=== PATIENT | male | born 1965 | race Native Hawaiian/Other Pacific Islander ===

== ENCOUNTER → 2016-09-26 | Outpatient (CLI) | payer OTHER ==
[~2016-09-26] MED LIST: ASPI325T; EZET10; GLUCTAB; PRAV20TA67; Work Release
[2016-09-26 08:02] LABS: MICRO ALBUMIN RANDOM URINE RAW 8.1 MG/L (0.0-30.0)
[2016-09-26 08:16] LABS: ANION GAP 6 MEQ/L (5-15); AST (GOT) 22 U/L (15-37); BICARBONATE 28.2 MEQ/L (21.0-32.0); BLOOD UREA NITROGEN 19 MG/DL (7-18); CHLORIDE 105 MEQ/L (98-107); GLOMERULAR FILTRATION RATE 85 ML/MIN (>89); GLUCOSE,FASTING 162 MG/DL (74-99); POTASSIUM 4.3 MEQ/L (3.5-5.1); SODIUM (NA) 139 MEQ/L (136-145)
[2016-09-26 08:25] LABS: ALKALINE PHOSPHATASE 111 U/L (45-117); ALT (GPT) 41 U/L (12-78); FREE T4 0.96 NG/DL (0.76-1.46); HDL CHOLESTEROL 41.3 MG/DL (40.0-60.0); LDL CHOLESTEROL 127 MG/DL (0-99); TOTAL BILIRUBIN ADULT 0.5 MG/DL (0.2-1.0)
[2016-09-26 11:41] LABS: HEMOGLOBIN A1a 1.1 %; HEMOGLOBIN Ao 81.7 %; HEMOGLOBIN F 1.3 %; HEMOGLOBIN LA1C 2.3 %; HEMOGLOBIN P3 4.2 %
== END ==
LOC: CLAB 07:09
PROVIDERS: ATTEND Internal Medicine Endocrinology, Diabetes & Metabolism
DX: I10 Essential (primary) hypertension (principal); E78.5 Hyperlipidemia, unspecified; R10.9 Unspecified abdominal pain; E11.9 Type 2 diabetes mellitus without complications
CPT/HCPCS: 36415; 80053; 80061; 82043; 82306; 83036; 84439; 84443

== ENCOUNTER → 2016-10-06 | Outpatient (CLI) | payer OTHER | LOC: CLAB 15:04 | PROVIDERS: ATTEND Internal Medicine Endocrinology, Diabetes & Metabolism | DX: E11.9 Type 2 diabetes mellitus without complications (principal); I10 Essential (primary) hypertension; E78.5 Hyperlipidemia, unspecified; E85.9 Amyloidosis, unspecified | CPT/HCPCS: 36415; 86708; 86709; 86803 ==

== ENCOUNTER → 2017-02-02 | Outpatient (CLI) | payer OTHER ==
[2017-02-02 09:57] LABS: HEMATOCRIT 44.4 % (39.0-51.0); MEAN CELL VOLUME 85.5 FL (80.0-100.0); MEAN CORPUSCULAR HEMOGLOBIN 28.1 PG (27.0-34.0); MEAN CORPUSCULAR HGB CONC 32.9 % (32.0-36.0); PLATELET COUNT 216 TH/MM3 (150-450); RED BLOOD COUNT 5.19 MIL/MM3 (4.50-5.90); RED CELL DISTRIBUTION WIDTH 14.9 % (11.6-17.2); REVIEW FLAG FINAL; WHITE BLOOD COUNT 3.8 TH/MM3 (4.0-11.0)
== END ==
LOC: CLAB 09:25
PROVIDERS: ATTEND Internal Medicine Endocrinology, Diabetes & Metabolism
DX: E78.5 Hyperlipidemia, unspecified (principal); I10 Essential (primary) hypertension; E11.9 Type 2 diabetes mellitus without complications; E85.9 Amyloidosis, unspecified
CPT/HCPCS: 36415; 82306; 84153; 84403; 85027

== ENCOUNTER → 2017-03-23 | Outpatient (CLI) | payer OTHER ==
[2017-03-23 10:26] LABS: ANION GAP 6 MEQ/L (5-15); AST (GOT) 19 U/L (15-37); BICARBONATE 27.4 MEQ/L (21.0-32.0); BLOOD UREA NITROGEN 20 MG/DL (7-18); CHLORIDE 105 MEQ/L (98-107); GLOMERULAR FILTRATION RATE 84 ML/MIN (>89); GLUCOSE,FASTING 140 MG/DL (74-99); SODIUM (NA) 138 MEQ/L (136-145)
[2017-03-23 10:36] LABS: ALKALINE PHOSPHATASE 102 U/L (45-117); ALT (GPT) 32 U/L (12-78); FREE T4 1.01 NG/DL (0.76-1.46); LDL CHOLESTEROL 98 MG/DL (0-99); TOTAL BILIRUBIN ADULT 0.4 MG/DL (0.2-1.0)
[2017-03-23 10:41] LABS: AUTOMATED NEUTROPHIL # 1.8 TH/MM3 (1.8-7.7); BASOPHIL % 0.3 % (0.0-2.0); EOSINOPHIL % 1.1 % (0.0-4.0); HEMO FLAGS DIFF FINAL; LYMPH % 46.2 % (9.0-44.0); MEAN CELL VOLUME 85.8 FL (80.0-100.0); MEAN CORPUSCULAR HEMOGLOBIN 28.9 PG (27.0-34.0); MEAN CORPUSCULAR HGB CONC 33.7 % (32.0-36.0); MONO % 9.1 % (0.0-8.0); NEUT % 43.3 % (16.0-70.0); PLATELET COUNT 203 TH/MM3 (150-450); RED BLOOD COUNT 5.01 MIL/MM3 (4.50-5.90); RED CELL DISTRIBUTION WIDTH 14.8 % (11.6-17.2); WHITE BLOOD COUNT 4.2 TH/MM3 (4.0-11.0)
[2017-03-23 17:30] LABS: HEMOGLOBIN A1a 1.2 %; HEMOGLOBIN Ao 81.7 %; HEMOGLOBIN F 1.4 %; HEMOGLOBIN LA1C 2.1 %
== END ==
LOC: CLAB 09:44
PROVIDERS: ATTEND Internal Medicine Endocrinology, Diabetes & Metabolism
DX: I10 Essential (primary) hypertension (principal); E11.9 Type 2 diabetes mellitus without complications; E78.5 Hyperlipidemia, unspecified; E03.9 Hypothyroidism, unspecified; E55.9 Vitamin D deficiency, unspecified; E23.0 Hypopituitarism; Z13.9 Encounter for screening, unspecified
CPT/HCPCS: 36415; 80053; 80061; 82306; 83036; 84153; 84403; 84439; 84443; 85025

== ENCOUNTER → 2017-09-11 | Outpatient (CLI) | payer OTHER ==
[2017-09-11 10:08] LABS: ALBUMIN 4.2 GM/DL (3.4-5.0); AST (GOT) 26 U/L (15-37); BICARBONATE 29.9 MEQ/L (21.0-32.0); BLOOD UREA NITROGEN 19 MG/DL (7-18); CHLORIDE 102 MEQ/L (98-107); CHOLESTEROL 127 MG/DL (120-200); GLOMERULAR FILTRATION RATE 88 ML/MIN (>89); GLUCOSE,FASTING 115 MG/DL (74-99); SODIUM (NA) 137 MEQ/L (136-145)
[2017-09-11 10:10] LABS: CALCIUM 9.4 MG/DL (8.5-10.1)
[2017-09-11 10:15] LABS: ALKALINE PHOSPHATASE 91 U/L (45-117); ALT (GPT) 39 U/L (12-78); CHOLESTEROL/ HDL RATIO 2.83 RATIO; HDL CHOLESTEROL 44.8 MG/DL (40.0-60.0); LDL CHOLESTEROL 71 MG/DL (0-99); TOTAL BILIRUBIN ADULT 0.5 MG/DL (0.2-1.0); TOTAL PROTEIN 7.7 GM/DL (6.4-8.2); TRIGLYCERIDES 54 MG/DL (42-150)
[2017-09-11 16:50] LABS: HEMOGLOBIN A1C 7.3 % (4.3-6.0)
== END ==
LOC: CLAB 09:16
PROVIDERS: ATTEND Internal Medicine Endocrinology, Diabetes & Metabolism
DX: E11.9 Type 2 diabetes mellitus without complications (principal); I10 Essential (primary) hypertension; E78.5 Hyperlipidemia, unspecified
CPT/HCPCS: 36415; 80053; 80061; 83036; 84681; 86341

== ENCOUNTER → 2017-09-21 | Outpatient (CLI) | payer OTHER ==
[2017-09-21 12:53] LABS: ALBUMIN 4.3 GM/DL (3.4-5.0); AST (GOT) 37 U/L (15-37); BICARBONATE 28.3 MEQ/L (21.0-32.0); BLOOD UREA NITROGEN 17 MG/DL (7-18); CHLORIDE 103 MEQ/L (98-107); CREATININE 0.86 MG/DL (0.60-1.30); GLOMERULAR FILTRATION RATE 93 ML/MIN (>89); GLUCOSE,FASTING 71 MG/DL (74-99); SODIUM (NA) 138 MEQ/L (136-145)
[2017-09-21 12:57] LABS: ALKALINE PHOSPHATASE 95 U/L (45-117); ALT (GPT) 37 U/L (12-78); CHOLESTEROL 106 MG/DL (120-200); HDL CHOLESTEROL 48.1 MG/DL (40.0-60.0); LDL CHOLESTEROL 53 MG/DL (0-99); TOTAL BILIRUBIN ADULT 0.6 MG/DL (0.2-1.0); TOTAL PROTEIN 7.5 GM/DL (6.4-8.2); TRIGLYCERIDES 23 MG/DL (42-150)
== END ==
LOC: CLAB 11:59
PROVIDERS: ATTEND Family Medicine
DX: E78.5 Hyperlipidemia, unspecified (principal)
CPT/HCPCS: 36415; 80053; 80061

== ENCOUNTER → 2018-01-03 | Outpatient (CLI) | payer OTHER ==
[2018-01-03 12:24] LABS: HEMATOCRIT 42.8 % (39.0-51.0); HEMOGLOBIN 14.4 GM/DL (13.0-17.0); MEAN CORPUSCULAR HEMOGLOBIN 29.2 PG (27.0-34.0); MEAN CORPUSCULAR HGB CONC 33.6 % (32.0-36.0); PLATELET COUNT 210 TH/MM3 (150-450); RED BLOOD COUNT 4.92 MIL/MM3 (4.50-5.90); RED CELL DISTRIBUTION WIDTH 14.8 % (11.6-17.2); WHITE BLOOD COUNT 4.6 TH/MM3 (4.0-11.0)
[2018-01-03 12:27] LABS: AST (GOT) 22 U/L (15-37); BICARBONATE 26.6 MEQ/L (21.0-32.0); BLOOD UREA NITROGEN 23 MG/DL (7-18); CALCIUM 8.9 MG/DL (8.5-10.1); CHLORIDE 104 MEQ/L (98-107); CREATININE 0.94 MG/DL (0.60-1.30); GLOMERULAR FILTRATION RATE 84 ML/MIN (>89); GLUCOSE,FASTING 132 MG/DL (74-99); SODIUM (NA) 138 MEQ/L (136-145)
[2018-01-03 12:28] LABS: CHOLESTEROL 125 MG/DL (120-200)
[2018-01-03 12:53] LABS: ALKALINE PHOSPHATASE 69 U/L (45-117); ALT (GPT) 29 U/L (12-78); CHOLESTEROL/ HDL RATIO 3.18 RATIO; FREE T4 0.97 NG/DL (0.76-1.46); HDL CHOLESTEROL 39.3 MG/DL (40.0-60.0); LDL CHOLESTEROL 77 MG/DL (0-99); TOTAL BILIRUBIN ADULT 0.6 MG/DL (0.2-1.0); TOTAL PROTEIN 7.2 GM/DL (6.4-8.2); TRIGLYCERIDES 45 MG/DL (42-150)
[2018-01-03 16:37] LABS: HEMOGLOBIN A1C 7.1 % (4.3-6.0)
== END ==
LOC: CLAB 11:34
PROVIDERS: ATTEND Internal Medicine Endocrinology, Diabetes & Metabolism
DX: E11.9 Type 2 diabetes mellitus without complications (principal); I10 Essential (primary) hypertension; E78.5 Hyperlipidemia, unspecified; E55.9 Vitamin D deficiency, unspecified; E23.0 Hypopituitarism; E03.9 Hypothyroidism, unspecified
CPT/HCPCS: 36415; 80053; 80061; 82306; 82607; 83036; 84153; 84403; 84439; 84443; 85027

== ENCOUNTER 2018-01-27 08:57 | Emergency (ER) | payer OTHER ==
[~2018-01-27] VITALS: Ht 188 cm; Wt 94.5 kg
[2018-01-27] VITALS (13 sets, daily range): BP systolic 105–140; BP diastolic 56–86; PULSE 71–90; RESP 16–18; TEMP 97.6–98.7; O2SAT 97–100
[2018-01-27] MEDS ORDERED: DAPA1TAB3 PO (09:12)
[2018-01-27] MEDS ORDERED: LISD40 PO (09:12)
[2018-01-27] MEDS ORDERED: METF500T PO (09:12)
[2018-01-27] MEDS ORDERED: FENO145T2 PO (09:12)
[2018-01-27] MEDS ORDERED: ROSU20 PO (09:12)
[2018-01-27 09:30] LABS: BASOPHIL % 0.3 % (0.0-2.0); EOSINOPHIL % 0.8 % (0.0-4.0); HEMOGLOBIN 14.1 GM/DL (13.0-17.0); LYMPH % 33.5 % (9.0-44.0); LYMPHOCYTE # 1.7 TH/MM3 (1.0-4.8); MEAN CELL VOLUME 86.6 FL (80.0-100.0); MEAN CORPUSCULAR HGB CONC 33.5 % (32.0-36.0); MONO % 7.1 % (0.0-8.0); MONOCYTE # 0.4 TH/MM3 (0-0.9); NEUT % 58.3 % (16.0-70.0); PLATELET COUNT 218 TH/MM3 (150-450); RED BLOOD COUNT 4.84 MIL/MM3 (4.50-5.90); RED CELL DISTRIBUTION WIDTH 14.5 % (11.6-17.2); WHITE BLOOD COUNT 5.2 TH/MM3 (4.0-11.0)
[2018-01-27] MEDS ORDERED: NITROGLYCERIN 2% OINT 1 GM PACKET TOPICAL ONE (09:30)
--- NOTE | 2018-01-27 09:31 | PD ---
HPI Chief Complaint: Chest Pain Time Seen by Provider: 09:26 Travel History International Travel<30 days: No Contact w/Intl Traveler<30days: No Traveled to known affect area: No History of Present Illness HPI 52-year-old female patient with history of diabetes, presents to the ER today because of 2 days history of substernal chest tightness which she states is currently an 8 out of 10. He denies any shortness of breath, nausea, vomiting, fevers, or any other symptoms. He does not know of any exacerbating or relieving factors. He has never had symptoms before. He had taken 4 tablets of baby aspirin before he came in. Modifying Factors: None Associated Signs & Symptoms: Substernal chest pain Risk Factors: None PFSH Past Medical History High Cholesterol: Yes Diabetes: Yes Patient Takes Glucophage: Yes Tetanus Vaccination: > 5 Years Influenza Vaccination: Yes ?: Not Social History Alcohol Use: No Tobacco Use: No Substance Use: No Allergies-Medications (Allergen,Severity, Reaction): Coded Allergies: No Known Allergies (Verified Allergy, Mild, 03/11/07) Reported Meds & Prescriptions Reported Meds & Active Scripts Active Reported Fenofibrate 145 Mg Tab 145 Mg PO DAILY Crestor (Rosuvastatin Calcium) 20 Mg Tab 20 Mg PO DAILY Farxiga (Dapagliflozin) 10 Mg Tab 10 Mg PO DAILY Metformin (Metformin HCl) 500 Mg Tab 500 Mg PO BIDPC Vyvanse (Lisdexamfetamine Dimesylate) 40 Mg Cap 40 Mg PO DAILY Review of Systems Except as stated in HPI: all other systems reviewed are Neg Physical Exam Narrative GENERAL: Well-developed middle-age male currently in mild distress. Awake and oriented 3. SKIN: Focused skin assessment warm/dry. HEAD: Atraumatic. Normocephalic. EYES: Pupils equal and round. No scleral icterus. No injection or drainage. ENT: No nasal bleeding or discharge. Mucous membranes pink and moist. NECK: Trachea midline. No JVD. CARDIOVASCULAR: Regular rate and rhythm. No murmur appreciated. RESPIRATORY: No accessory muscle use. Clear to auscultation. Breath sounds equal bilaterally. GASTROINTESTINAL: Abdomen soft, non-tender, nondistended. Hepatic and splenic margins not palpable. MUSCULOSKELETAL: No obvious deformities. No clubbing. No cyanosis. No edema. NEUROLOGICAL: Awake and alert. No obvious cranial nerve deficits. Motor grossly within normal limits. Normal speech. PSYCHIATRIC: Appropriate mood and affect; insight and judgment normal. Data Data Last Documented VS Vital Signs Date Time Temp Pulse Resp B/P (MAP) Pulse Ox O2 Delivery O2 Flow Rate FiO2 01/27/18 09:18 99 Room Air 01/27/18 09:07 79 18 01/27/18 09:00 97.9 Orders Orders Electrocardiogram (01/27/18 09:13) Complete Blood Count With Diff (01/27/18 09:13) Basic Metabolic Panel (Bmp) (01/27/18 09:13) Ckmb (Isoenzyme) Profile (01/27/18 09:13) Troponin I (01/27/18 09:13) Chest, Single Ap (01/27/18 09:13) Iv Access Insert/Monitor (01/27/18 09:13) Ecg Monitoring (01/27/18 09:13) Oxygen Administration (01/27/18 09:13) Oximetry (01/27/18 09:13) Nitroglycerin 2% Oint (Nitroglycerin 2% (01/27/18 09:30) CKMB (01/27/18 09:15) CKMB% (01/27/18 09:15) Admit Order (Ed Use Only) (01/27/18 10:12) Hepatic Functional Panel (01/27/18 10:12) Labs Laboratory Tests Test 01/27/18 09:15 White Blood Count 5.2 TH/MM3 Red Blood Count 4.84 MIL/MM3 Hemoglobin 14.1 GM/DL Hematocrit 42.0 % Mean Corpuscular Volume 86.6 FL Mean Corpuscular Hemoglobin 29.0 PG Mean Corpuscular Hemoglobin Concent 33.5 % Red Cell Distribution Width 14.5 % Platelet Count 218 TH/MM3 Mean Platelet Volume 8.0 FL Neutrophils (%) (Auto) 58.3 % Lymphocytes (%) (Auto) 33.5 % Monocytes (%) (Auto) 7.1 % Eosinophils (%) (Auto) 0.8 % Basophils (%) (Auto) 0.3 % Neutrophils # (Auto) 3.0 TH/MM3 Lymphocytes # (Auto) 1.7 TH/MM3 Monocytes # (Auto) 0.4 TH/MM3 Eosinophils # (Auto) 0.0 TH/MM3 Basophils # (Auto) 0.0 TH/MM3 CBC Comment DIFF FINAL Differential Comment Blood Urea Nitrogen 26 MG/DL Creatinine 1.12 MG/DL Random Glucose 142 MG/DL Calcium Level 8.8 MG/DL Sodium Level 138 MEQ/L Potassium Level 4.0 MEQ/L Chloride Level 103 MEQ/L Carbon Dioxide Level 24.9 MEQ/L Anion Gap 10 MEQ/L Estimat Glomerular Filtration Rate 69 ML/MIN Total Creatine Kinase 232 U/L Creatine Kinase MB 4.4 NG/ML Troponin I LESS THAN 0.02 NG/ML MDM Medical Decision Making Medical Screen Exam Complete: Yes Emergency Medical Condition: Yes Medical Record Reviewed: Yes Interpretation(s) EKG EKG shows NSR, no ST elevation or depression, and no arrhythmias. No significant T-wave inversions. Laboratory Tests Test 01/27/18 09:15 Blood Urea Nitrogen 26 MG/DL (7-18) Random Glucose 142 MG/DL (74-106) Estimat Glomerular Filtration Rate 69 ML/MIN (>89) Creatine Kinase MB 4.4 NG/ML (0.5-3.6) Troponin I LESS THAN 0.02 NG/ML Last 24 hours Impressions Chest X-Ray 01/27/18 0913 Signed Impressions: CONCLUSION: No acute cardiopulmonary disease Differential Diagnosis ACS versus dysrhythmias versus costochondritis versus anxiety attack Narrative Course Patient was given aspirin nitroglycerin in the ER. Planning to admit for further evaluation and chest pain center. Cardiac enzyme was initially negative. EKG did not show any signs of acute changes. Chest x-ray was unremarkable. Diagnosis Primary Impression: Chest pain Admitting Information Admitting Physician Requests: Admit Samuel Kaur MD Jan 27, 2018 09:31
--- NOTE | 2018-01-27 09:45 | RADRPT ---
EXAM DATE: 01/27/2018 9:27 AM EDT AGE/SEX: 52 years / Male INDICATIONS: Chest pain and tightness. CLINICAL DATA: This is the patient's initial encounter. Patient reports that signs and symptoms have been present for 2 days and indicates a pain score of 0/10. MEDICAL/SURGICAL HISTORY: None. None. COMPARISON: No prior exams available for comparison. FINDINGS: A single AP view of the chest demonstrates the lungs to be symmetrically aerated without evidence of mass, infiltrate or effusion. The cardiomediastinal contours are unremarkable. Osseous structures a re intact. CONCLUSION: No acute cardiopulmonary disease Electronically signed by: Sim Yepez MD 01/27/2018 9:44 AM EDT
[2018-01-27 09:53] LABS: BICARBONATE 24.9 MEQ/L (21.0-32.0); BLOOD UREA NITROGEN 26 MG/DL (7-18); CALCIUM 8.8 MG/DL (8.5-10.1); CHLORIDE 103 MEQ/L (98-107); CREATININE 1.12 MG/DL (0.60-1.30); GLOMERULAR FILTRATION RATE 69 ML/MIN (>89); GLUCOSE,RANDOM 142 MG/DL (74-106); SODIUM (NA) 138 MEQ/L (136-145)
[2018-01-27 09:58] LABS: TROPONIN I LESS THAN 0.02 NG/ML (0.02-0.05)
[2018-01-27] MEDS ORDERED: ACETAMINOPHEN 500 MG CPLT PO PRN (10:30)
[2018-01-27] MEDS ORDERED: NITROGLYCERIN 0.4 MG SL 25 TABS/BTL SL PRN (10:30)
[2018-01-27] MEDS ORDERED: SODIUM CHLORIDE 0.9% FLUSH 10 ML FLUSH IV FLUSH PRN (10:30)
[2018-01-27] MEDS: ASPIRIN 325 MG TAB PO SCH (11:24)
[2018-01-27] MEDS ORDERED: ONDANSETRON ODT 4 MG TAB PO PRN (11:30)
[2018-01-27] MEDS ORDERED: ONDANSETRON HCL 4 MG/2 ML VIAL IV PUSH PRN (11:30)
[2018-01-27] MEDS ORDERED: MORPHINE SULFATE 4 MG/ML INJ IV PUSH ONE (11:30)
[2018-01-27] MEDS ORDERED: MORPHINE SULFATE 4 MG/ML INJ IV ONE (11:45)
--- NOTE | 2018-01-27 11:54 | HHI.HP ---
HPI Primary Care Physician Sam Helton D.O. Chief Complaint Chest pain History of Present Illness 52 y.o. Male presented to the ER today after several hours of mid sternal chest pain. He states last evening he went to dinner with friends and ate a steak, later after dinner took a 30 minute walk. Around 12mn he developed mid sternal heaviness/tightness that prevented him from sleeping most of the night. Rates pain at 8/10 on arrival to ER and now feels radiation thru to his mid scapular area. No arm/jaw symptoms. Feels that his breathing is slightly labored over his usual. Had slight nausea without vomiting with breakfast this am which he did not finish. States always has some degree of diaphoresis when he eats, he has noticed none over his usual. He denies abdominal pain but does mention in the past he has had difficulty with gastroparesis with he believes an ileus/ SBO. At the time of visit in ER pod E for history he feels his chest pain is now 9-10/10 currently. Nitro paste on which he doesn't feel helped. He denies fevers or chills. No diarrhea. He denies any past surgeries. No personal history of CAD. Used to follow with Dr. Pollo Garcia in Cardiology for family history/ prevention but last seen in office ~ 2-3 years ago. Lexiscan 09/15/13 No stress induced ischemia. EF 75% No history of past cardiac catheterization. Review of Systems Consitutional: DENIES: Fatigue, Fever, Chills, Weight gain, Weight loss Eyes: DENIES: Amaurosis Fugax, Change in vision HEENT: DENIES: Lightheadedness, Change in hearing Respiratory: COMPLAINS OF: Shortness of breath Cardiovascular: COMPLAINS OF: Chest pain Gastrointestinal: COMPLAINS OF: Nausea Genitourinary: DENIES: Urinary incontinence, Difficulty voiding Integumentary: DENIES: Rash Neurologic: DENIES: Tingling or numbness, Memory problems, Poor Balance, Stroke symptoms Musculoskeletal: DENIES: Joint pain, Muscle pain, Limited range of motion, Back pain Psychiatric: COMPLAINS OF: Sleep disturbances (takes Ambien PRN insomnia), DENIES: Anxiety, Depression Hematologic: DENIES: Bruising tendencies, Bleeding tendencies Endocrine: DENIES: Weight gain, Weight loss, Thyroid disease Past Family Social History Allergies: Coded Allergies: No Known Allergies (Verified Allergy, Mild, 03/11/07) Past Medical History PMH: Type 2 DM, Hyperlipidemia/Hypertriglyceridemia, ADHD, Insomnia, Gastroparesis Denies HTN (states takes ACEI for renal protection w/ his DM). Denies known CAD. Possible Ileus vs. SBO in the past. Intermittent GERD Past Surgical History Denies surgeries. Reported Medications Ambien 10 mg PO Q HS PRN insomnia Enalapril 10 mg PO Daily Reported Meds & Active Scripts Active Reported Fenofibrate 145 Mg Tab 145 Mg PO DAILY Crestor (Rosuvastatin Calcium) 20 Mg Tab 20 Mg PO DAILY Farxiga (Dapagliflozin) 10 Mg Tab 10 Mg PO DAILY Metformin (Metformin HCl) 500 Mg Tab 500 Mg PO BIDPC Vyvanse (Lisdexamfetamine Dimesylate) 40 Mg Cap 40 Mg PO DAILY Active Ordered Medications Current Medications Medications (Trade) Dose Ordered Sig/Romain Route Start Time Stop Time Status Last Admin (NS Flush) 2 ml UNSCH PRN IV FLUSH 01/27/18 10:30 (NS Flush) 2 ml BID IV FLUSH 01/27/18 21:00 (Tylenol) 500 mg Q4H PRN PO 01/27/18 10:30 (Nitrostat Sl) 0.4 mg Q5M PRN SL 01/27/18 10:30 01/27/18 11:36 (Aspirin) 325 mg DAILY PO 01/28/18 09:00 (Zofran Inj) 4 mg Q6HR PRN IV PUSH 01/27/18 11:30 Sodium Chloride 1,000 ml @ 100 mls/hr Q10H IV 01/27/18 11:30 (Zofran Odt) 4 mg Q6H PRN PO 01/27/18 11:30 (Morphine Inj) 4 mg ONCE ONCE IV 01/27/18 11:45 01/27/18 11:46 Family History Brother NE age 54 Dad, no CAD Mom hx HTN Social History Works as a Pharmacist No Tobacco, No illicit drugs. No ETOH Physical Exam Vital Signs Vital Signs Date Time Temp Pulse Resp B/P (MAP) Pulse Ox O2 Delivery O2 Flow Rate FiO2 01/27/18 11:39 18 01/27/18 11:39 18 01/27/18 11:30 76 18 132/77 (95) 99 Nasal Cannula 2.00 01/27/18 09:18 99 Room Air 01/27/18 09:18 99 Room Air 01/27/18 09:07 79 18 139/86 (103) 99 Room Air 01/27/18 09:07 18 99 Room Air 01/27/18 09:00 97.9 84 18 140/80 (100) 99 Physical Exam GENERAL: 52 y.o. male seen in POD E in ER, resting on stretcher. Able to provide history but states increasing pain by the end of history/exam at 9- as described in the HPI SKIN: Warm, slightly diaphoretic along upper back/chest. HEAD: Atraumatic. Normocephalic. EYES: Pupils equal and round. No scleral icterus. No injection or drainage. ENT: No nasal bleeding or discharge. Mucous membranes pink and moist. NECK: Trachea midline. No JVD. Right no carotid bruit. Left mild carotid bruit. CARDIOVASCULAR: Regular rate and rhythm. S1 and S2 in RRR, No S3, S4, rub or gallop. Grade 2/6 systolic murmur LUSB, [place]. RESPIRATORY: No accessory muscle use. Clear to auscultation. Breath sounds equal bilaterally. GASTROINTESTINAL: Abdomen soft, non-tender, nondistended. Hepatic and splenic margins not palpable. No guarding, rigidity or rebound tenderness. + bowel sounds present. MUSCULOSKELETAL: Extremities without clubbing, cyanosis, or edema. No obvious deformities. NEUROLOGICAL: Awake and alert. No obvious cranial nerve deficits. Motor grossly within normal limits. Five out of 5 muscle strength in the arms and legs. Normal speech. PSYCHIATRIC: Appropriate mood and affect other than mildly anxious. insight and judgment normal. EXTREMITIES: Moves all extremities well. No lower leg edema. Laboratory Laboratory Tests Test 01/27/18 09:15 White Blood Count 5.2 Red Blood Count 4.84 Hemoglobin 14.1 Hematocrit 42.0 Mean Corpuscular Volume 86.6 Mean Corpuscular Hemoglobin 29.0 Mean Corpuscular Hemoglobin Concent 33.5 Red Cell Distribution Width 14.5 Platelet Count 218 Mean Platelet Volume 8.0 Neutrophils (%) (Auto) 58.3 Lymphocytes (%) (Auto) 33.5 Monocytes (%) (Auto) 7.1 Eosinophils (%) (Auto) 0.8 Basophils (%) (Auto) 0.3 Neutrophils # (Auto) 3.0 Lymphocytes # (Auto) 1.7 Monocytes # (Auto) 0.4 Eosinophils # (Auto) 0.0 Basophils # (Auto) 0.0 CBC Comment DIFF FINAL Differential Comment Blood Urea Nitrogen 26 Creatinine 1.12 Random Glucose 142 Calcium Level 8.8 Sodium Level 138 Potassium Level 4.0 Chloride Level 103 Carbon Dioxide Level 24.9 Anion Gap 10 Estimat Glomerular Filtration Rate 69 Total Creatine Kinase 232 Creatine Kinase MB 4.4 Troponin I LESS THAN 0.02 Result Diagram: 01/27/1891401/27/18914 Imaging Last 24 hours Impressions Chest X-Ray 01/27/18912 Signed Impressions: CONCLUSION: No acute cardiopulmonary disease Course EKGs x 2: both NSR, no ST-T changes to suggest ischemia. Caprini VTE Risk Assessment Caprini VTE Risk Assessment: No/Low Risk (score <= 1) Caprini Risk Assessment Model Point Value = 1 Point Value = 2 Point Value = 3 Point Value = 5 Age 41-60 Minor surgery BMI > 25 kg/m2 Swollen legs Varicose veins or History of unexplained or recurrent spontaneous Oral contraceptives or hormone replacement Sepsis (< 1 month) Serious lung disease, including pneumonia (< 1 month) Abnormal pulmonary function Acute myocardial infarction Congestive heart failure (< 1 month) History of inflammatory bowel disease Medical patient at bed rest Age 61-74 Arthroscopic surgery Major open surgery (> 45 min) Laparoscopic surgery (> 45 min) Malignancy Confined to bed (> 72 hours) Immobilizing plaster cast Central venous access Age >= 75 History of VTE Family history of VTE Factor V Leiden Prothrombin [id number] Lupus anticoagulant Anticardiolipin antibodies Elevated serum homocysteine Heparin-induced thrombocytopenia Other congenital or acquired thrombophilia Stroke (< 1 month) Elective arthroplasty Hip, pelvis, or leg fracture Acute spinal cord injury (< 1 month) Prophylaxis Regimen Total Risk Factor Score Risk Level Prophylaxis Regimen 0-1 Low Early ambulation 2 Moderate Order ONE of the following: *Sequential Compression Device (SCD) *Heparin 5000 units SQ BID 3-4 Higher Order ONE of the following medications: *Heparin 5000 units SQ TID *Enoxaparin/Lovenox 40 mg SQ daily (WT < 150 kg, CrCl > 30 mL/min) *Enoxaparin/Lovenox 30 mg SQ daily (WT < 150 kg, CrCl > 10-29 mL/min) *Enoxaparin/Lovenox 30 mg SQ BID (WT < 150 kg, CrCl > 30 mL/min) AND/OR *Sequential Compression Device (SCD) 5 or more Highest Order ONE of the following medications: *Heparin 5000 units SQ TID (Preferred with Epidurals) *Enoxaparin/Lovenox 40 mg SQ daily (WT < 150 kg, CrCl > 30 mL/min) *Enoxaparin/Lovenox 30 mg SQ daily (WT < 150 kg, CrCl > 10-29 mL/min) *Enoxaparin/Lovenox 30 mg SQ BID (WT < 150 kg, CrCl > 30 mL/min) AND *Sequential Compression Device (SCD) Assessment and Plan Problem List: (1) Chest pain ICD Codes: R07.9 - Chest pain, unspecified Status: Acute Plan: #1) Exclude ACS with serial EKGs/Enzymes and observations Telemetry monitoring. Dr. Selby to see and evaluate patient for recommendations. Nitro, Zofran, Morphine, IVF as ordered. Oxygen on via N/C 2 LPM. Assessment and Plan As above. Check Flat & Upright of abdomen secondary to hx of Gastroparesis, past hx of Ileus. Add lipase to next blood draw. Code Status FULL CODE Discussed Condition With Nieves Solorio Jan 27, 2018 11:54
--- NOTE | 2018-01-27 12:21 | RADRPT ---
EXAM DATE: 01/27/2018 12:14 PM EDT AGE/SEX: 52 years / Male INDICATIONS: Right and middle, lower abdominal pain. CLINICAL DATA: This is the patient's initial encounter. Patient reports that signs and symptoms have been present for 3 days and indicates a pain score of 7/10. MEDICAL/SURGICAL HISTORY: Gastroparesis. None. COMPARISON: No prior exams available for comparison. FINDINGS: Supine and upright views of the abdomen were performed. The abdominal bowel gas pattern is normal. No air-fluid levels are seen. No abnormal masses, calcifications, or organomegaly is seen. The visualiz ed lower lungs are clear. No evidence of free intraperitoneal gas. The osseous structures are unremar kable. CONCLUSION: No acute abnormalities Electronically signed by: Sim Yepez MD 01/27/2018 12:19 PM EDT
[2018-01-27 12:43] LABS: ALBUMIN 4.1 GM/DL (3.4-5.0); DIRECT BILIRUBIN ADULT 0.1 MG/DL (0.0-0.2)
[2018-01-27 12:45] LABS: INDIRECT BILIRUBIN 0.4 MG/DL (0.0-0.8); TOTAL BILIRUBIN ADULT 0.5 MG/DL (0.2-1.0); TOTAL PROTEIN 7.5 GM/DL (6.4-8.2)
[2018-01-27 12:57] LABS: TROPONIN I LESS THAN 0.02 NG/ML (0.02-0.05)
[2018-01-27] MEDS: SODIUM CHLOR 0.9% 1000 ML INJ 1,000 ML IV SCH ×2 (13:03→22:31)
--- NOTE | 2018-01-27 15:03 | PD.CARD.PN ---
Subjective Subjective Remarks Patient was presented by the nurse practitioner documentation was reviewed, laboratory and radiographic findings were reviewed and the patient was then seen and examined personally. Evaluation to rule out ACS carried out using standard chest pain protocol. History and elevated alkaline phosphatase suggest possibility of a biliary attack and if cardiovascular evaluation is negative the patient will be discharged for outpatient follow-up with Dr. Helton for further evaluation of his GI tract. Objective Medications Current Medications Medications (Trade) Dose Ordered Sig/Romain Route Start Time Stop Time Status Last Admin (NS Flush) 2 ml UNSCH PRN IV FLUSH 01/27/18 10:30 (NS Flush) 2 ml BID IV FLUSH 01/27/18 21:00 (Tylenol) 500 mg Q4H PRN PO 01/27/18 10:30 01/27/18 13:02 (Nitrostat Sl) 0.4 mg Q5M PRN SL 01/27/18 10:30 01/27/18 11:36 (Aspirin) 325 mg DAILY PO 01/28/18 09:00 (Zofran Inj) 4 mg Q6HR PRN IV PUSH 01/27/18 11:30 Sodium Chloride 1,000 ml @ 100 mls/hr Q10H IV 01/27/18 11:30 01/27/18 13:03 (Zofran Odt) 4 mg Q6H PRN PO 01/27/18 11:30 Vital Signs / I&O Vital Signs Date Time Temp Pulse Resp B/P (MAP) Pulse Ox O2 Delivery O2 Flow Rate FiO2 01/27/18 14:13 74 01/27/18 13:58 100 21 01/27/18 12:52 97.6 71 18 112/65 (81) 100 01/27/18 12:15 18 01/27/18 11:39 18 01/27/18 11:39 18 01/27/18 11:30 76 18 132/77 (95) 99 Nasal Cannula 2.00 01/27/18 09:18 99 Room Air 01/27/18 09:18 99 Room Air 01/27/18 09:07 79 18 139/86 (103) 99 Room Air 01/27/18 09:07 18 99 Room Air 01/27/18 09:00 97.9 84 18 140/80 (100) 99 I/O 6/23/18 6/23/01/26/18 01/27/18 01/27/18 01/27/18 07:00 15:00 23:00 07:00 15:00 23:00 Output Total 250 ml Balance -250 ml Output Urine Total 250 ml Physical Exam Well-nourished well-developed man in no acute distress at the time of this exam Neck no JVD masses or nodes. A very soft bruit is noted. Chest clear to auscultation with no rales wheezes or rhonchi Cardiovascular regular sinus rhythm with no gallops or rubs there is a soft 2/6 systolic murmur best heard at the apex. The abdomen is soft nontender no guarding or rebound no hepatosplenomegaly is palpated and no masses are felt Laboratory Laboratory Tests Test 01/27/18 09:15 01/27/18 12:25 White Blood Count 5.2 TH/MM3 Red Blood Count 4.84 MIL/MM3 Hemoglobin 14.1 GM/DL Hematocrit 42.0 % Mean Corpuscular Volume 86.6 FL Mean Corpuscular Hemoglobin 29.0 PG Mean Corpuscular Hemoglobin Concent 33.5 % Red Cell Distribution Width 14.5 % Platelet Count 218 TH/MM3 Mean Platelet Volume 8.0 FL Neutrophils (%) (Auto) 58.3 % Lymphocytes (%) (Auto) 33.5 % Monocytes (%) (Auto) 7.1 % Eosinophils (%) (Auto) 0.8 % Basophils (%) (Auto) 0.3 % Neutrophils # (Auto) 3.0 TH/MM3 Lymphocytes # (Auto) 1.7 TH/MM3 Monocytes # (Auto) 0.4 TH/MM3 Eosinophils # (Auto) 0.0 TH/MM3 Basophils # (Auto) 0.0 TH/MM3 CBC Comment DIFF FINAL Differential Comment Blood Urea Nitrogen 26 MG/DL Creatinine 1.12 MG/DL Random Glucose 142 MG/DL Calcium Level 8.8 MG/DL Sodium Level 138 MEQ/L Potassium Level 4.0 MEQ/L Chloride Level 103 MEQ/L Carbon Dioxide Level 24.9 MEQ/L Anion Gap 10 MEQ/L Estimat Glomerular Filtration Rate 69 ML/MIN Total Bilirubin 0.5 MG/DL Direct Bilirubin 0.1 MG/DL Indirect Bilirubin 0.4 MG/DL Aspartate Amino Transf (AST/SGOT) 23 U/L Alanine Aminotransferase (ALT/SGPT) 34 U/L Alkaline Phosphatase 124 U/L Total Creatine Kinase 232 U/L 191 U/L Creatine Kinase MB 4.4 NG/ML 4.0 NG/ML Troponin I LESS THAN 0.02 NG/ML LESS THAN 0.02 NG/ML Total Protein 7.5 GM/DL Albumin 4.1 GM/DL Lipase 251 U/L Imaging Last 24 hours Impressions Chest X-Ray 01/27/18 0913 Signed Impressions: CONCLUSION: No acute cardiopulmonary disease Abdomen X-Ray 01/27/18 0000 Signed Impressions: CONCLUSION: No acute abnormalities Assessment and Plan Problem List: (1) Chest pain ICD Codes: R07.9 - Chest pain, unspecified Status: Acute Plan: We will rule out ACS using standard chest pain protocol if negative he will be discharged to follow-up with his primary care physician for further evaluation of the GI tract and gallbladder StoneJorge gleason MD Jan 27, 2018 15:03
--- NOTE | 2018-01-27 16:29 | TR ---
Date Performed: 01/27/2018 Time Performed: 15:45:32 DOCTOR: Jorge Selby DRUG LIST: CLINICAL HISTORY: REASON FOR TEST: CHEST PAIN REASON FOR ENDING: OBSERVATION: CONCLUSION: The patient exercised for 6:32 using a standard Yfn Protocol reaching a max heart rate of 77% predicted. He had no chest pain but developed flat to down-sloping ST depression in the inferior and lateral leads. The test was terminated and he is scheduled for a nuclear stress in the A.M. COMMENTS: Strongly positive stress test at a relatively low work level in a patient presenting w ith ischemic symptoms.
[2018-01-27] MEDS ORDERED: DEXTROSE 50% IN WATER 50 ML VIAL(D50) IV PUSH PRN (16:30)
[2018-01-27] MEDS ORDERED: GLUCAGON 1 MG/ML VIAL OTHER PRN (16:30)
[2018-01-27 16:44] LABS: TROPONIN I LESS THAN 0.02 NG/ML (0.02-0.05)
[2018-01-27] MEDS: SODIUM CHLORIDE 0.9% FLUSH 10 ML FLUSH IV FLUSH SCH (21:00)
[2018-01-27] MEDS ORDERED: GLIMEPIRIDE 4 MG TAB PO SCH (21:30)
[2018-01-27] MEDS ORDERED: ZOLPIDEM TARTRATE 10 MG TAB PO SCH (21:30)
[2018-01-27] MEDS ORDERED: FARXIGA 10 MG PO SCH (21:30)
[2018-01-27] MEDS ORDERED: metFORMIN HCL 500 MG TAB PO SCH (21:30)
[2018-01-28 04:19] VITALS: PULSE 87
[2018-01-28 05:34] VITALS: BP 101/57; PULSE 87; RESP 16; TEMP 98; O2SAT 95
[2018-01-28 07:32] VITALS: O2SAT 95
[2018-01-28] MEDS: SODIUM CHLOR 0.9% 1000 ML INJ 1,000 ML IV SCH (07:37)
[2018-01-28 08:04] VITALS: BP 120/73; PULSE 79; RESP 16; TEMP 97.8; O2SAT 96
--- NOTE | 2018-01-28 08:18 | PD.CARD.PN ---
Subjective Subjective Remarks No complaints overnight. Previously made aware of plan of care. No further questions regarding cardiac testing planned for today. Objective Medications Current Medications Medications (Trade) Dose Ordered Sig/Romain Route Start Time Stop Time Status Last Admin (NS Flush) 2 ml UNSCH PRN IV FLUSH 01/27/18 10:30 (NS Flush) 2 ml BID IV FLUSH 01/27/18 21:00 (Tylenol) 500 mg Q4H PRN PO 01/27/18 10:30 01/27/18 13:02 (Nitrostat Sl) 0.4 mg Q5M PRN SL 01/27/18 10:30 01/27/18 11:36 (Aspirin) 325 mg DAILY PO 01/28/18 09:00 (Zofran Inj) 4 mg Q6HR PRN IV PUSH 01/27/18 11:30 Sodium Chloride 1,000 ml @ 100 mls/hr Q10H IV 01/27/18 11:30 01/28/18 07:37 (Zofran Odt) 4 mg Q6H PRN PO 01/27/18 11:30 (Tricor) 145 mg DAILY PO 01/28/18 09:00 (Lipitor) 40 mg DAILY PO 01/28/18 09:00 (D50w (Vial) Inj) 50 ml UNSCH PRN IV PUSH 01/27/18 16:30 (Glucagon Inj) 1 mg UNSCH PRN OTHER 01/27/18 16:30 Vital Signs / I&O Vital Signs Date Time Temp Pulse Resp B/P (MAP) Pulse Ox O2 Delivery O2 Flow Rate FiO2 01/28/18 08:04 97.8 79 16 120/73 (89) 96 01/28/18 07:32 95 21 01/28/18 05:34 98.0 87 16 101/57 (72) 95 01/28/18 04:19 87 01/27/18 23:57 98.7 90 16 105/56 (72) 97 01/27/18 22:15 76 01/27/18 20:28 97.9 88 17 124/68 (86) 98 01/27/18 20:05 81 01/27/18 19:53 98 01/27/18 16:54 97.8 83 18 120/73 (89) 98 01/27/18 14:13 74 01/27/18 13:58 100 21 01/27/18 12:52 97.6 71 18 112/65 (81) 100 01/27/18 12:15 18 01/27/18 11:39 18 01/27/18 11:39 18 01/27/18 11:30 76 18 132/77 (95) 99 Nasal Cannula 2.00 01/27/18 09:18 99 Room Air 01/27/18 09:18 99 Room Air 01/27/18 09:07 79 18 139/86 (103) 99 Room Air 01/27/18 09:07 18 99 Room Air 01/27/18 09:00 97.9 84 18 140/80 (100) 99 I/O 01/27/18 01/27/18 01/27/18 01/28/18 01/28/18 01/28/18 07:00 15:00 23:00 07:00 15:00 23:00 Output Total 250 ml 400 ml Balance -250 ml -400 ml Output Urine Total 250 ml 400 ml # Voids 2 Physical Exam GENERAL: Alert WN, WD, NAD, pleasant HEAD: NC, AT CV: RRR, without murmur, rub, gallop, or S3-S4 RESP: Clear lungs throughout bilateral, no crackles, wheeze, rhonchi, symmetrical chest rise, nonlabored, able to speak in full sentences ABD: Soft, NT, ND, no masses, positive bowel tones MS: Normal tone x4 extremities, no obvious deformities, full range of motion PSYCH: A+O x3, flat affect, appropriate speech, mood, insight and judgment SKIN: Normal turgor, normal texture Laboratory Laboratory Tests Test 01/27/18 09:15 01/27/18 12:25 01/27/18 15:30 White Blood Count 5.2 TH/MM3 Red Blood Count 4.84 MIL/MM3 Hemoglobin 14.1 GM/DL Hematocrit 42.0 % Mean Corpuscular Volume 86.6 FL Mean Corpuscular Hemoglobin 29.0 PG Mean Corpuscular Hemoglobin Concent 33.5 % Red Cell Distribution Width 14.5 % Platelet Count 218 TH/MM3 Mean Platelet Volume 8.0 FL Neutrophils (%) (Auto) 58.3 % Lymphocytes (%) (Auto) 33.5 % Monocytes (%) (Auto) 7.1 % Eosinophils (%) (Auto) 0.8 % Basophils (%) (Auto) 0.3 % Neutrophils # (Auto) 3.0 TH/MM3 Lymphocytes # (Auto) 1.7 TH/MM3 Monocytes # (Auto) 0.4 TH/MM3 Eosinophils # (Auto) 0.0 TH/MM3 Basophils # (Auto) 0.0 TH/MM3 CBC Comment DIFF FINAL Differential Comment Blood Urea Nitrogen 26 MG/DL Creatinine 1.12 MG/DL Random Glucose 142 MG/DL Calcium Level 8.8 MG/DL Sodium Level 138 MEQ/L Potassium Level 4.0 MEQ/L Chloride Level 103 MEQ/L Carbon Dioxide Level 24.9 MEQ/L Anion Gap 10 MEQ/L Estimat Glomerular Filtration Rate 69 ML/MIN Total Bilirubin 0.5 MG/DL Direct Bilirubin 0.1 MG/DL Indirect Bilirubin 0.4 MG/DL Aspartate Amino Transf (AST/SGOT) 23 U/L Alanine Aminotransferase (ALT/SGPT) 34 U/L Alkaline Phosphatase 124 U/L Total Creatine Kinase 232 U/L 191 U/L 136 U/L Creatine Kinase MB 4.4 NG/ML 4.0 NG/ML 3.2 NG/ML Troponin I LESS THAN 0.02 NG/ML LESS THAN 0.02 NG/ML LESS THAN 0.02 NG/ML Total Protein 7.5 GM/DL Albumin 4.1 GM/DL Lipase 251 U/L Imaging Last 24 hours Impressions Chest X-Ray 01/27/18 0913 Signed Impressions: CONCLUSION: No acute cardiopulmonary disease Assessment and Plan Problem List: (1) Chest pain ICD Codes: R07.9 - Chest pain, unspecified Status: Acute Assessment and Plan Continue with lexiscan today. If unremarkable, plans to discharge home later this afternoon with follow up with his PCP and with his GI specialist. Problem Qualifiers (1) Chest pain: Qualified Codes: R07.9 - Chest pain, unspecified Ida Hernandez Jan 28, 2018 08:18
[2018-01-28] MEDS ORDERED: ATORVASTATIN 40 MG TAB PO SCH (09:00)
[2018-01-28] MEDS: SODIUM CHLORIDE 0.9% FLUSH 10 ML FLUSH IV FLUSH SCH (09:00)
[2018-01-28] MEDS ORDERED: FENOFIBRATE 145 MG TAB PO SCH (09:00)
--- NOTE | 2018-01-28 09:24 | RADRPT ---
EXAM DATE: 01/28/2018 9:17 AM EDT AGE/SEX: 52 years / Male INDICATIONS: Epigastric pain with nausea. CLINICAL DATA: This is the patient's initial encounter. Patient reports that signs and/or symptoms h ave been present for 4 - 6 days and indicates a pain score of 3/10. MEDICAL/SURGICAL HISTORY: Hypercholesterolemia. Dyspnea. Diabetes. Nausea. Gastroparesis. None. COMPARISON: [facility], CT ABDOMEN AND PELVIS W/ CONTRAST, 01/07/2016. . MEASUREMENTS: Liver:__ 16.2 cm. Common Bile Duct:__ 5mm. FINDINGS: Liver: Normal echotexture without focal lesion or ductal dilatation. Portal Vein: Hepatopedal flow seen in portal vein. Common Duct: No intraluminal mass or stone visualized. Gallbladder: Mild diffuse gallbladder wall thickening and minimal gallbladder wall fluid. Moderate g allbladder sludge. Pancreas: The visualized portions are within normal limits Right Kidney: 17 mm cyst in the lower pole. No hydronephrosis. Other: None. CONCLUSION: Abnormal gallbladder appearance. Electronically signed by: Tyree Muñoz MD 01/28/2018 9:23 AM EDT
[2018-01-28] MEDS ORDERED: REGADENOSON INJ 0.4 MG/5 ML SYR ONE (10:06)
--- NOTE | 2018-01-28 11:17 | RADRPT ---
EXAM DATE: 01/28/2018 10:53 AM EDT AGE/SEX: 52 years / Male INDICATIONS:Angina. . Midsternal chest pain. CLINICAL DATA: This is the patient's initial encounter. Patient reports that signs and symptoms have been present for 1 day and indicates a pain score of 1/10. MEDICAL/SURGICAL HISTORY: Diabetes mellitus type II. None. COMPARISON: No prior exams available for comparison. No external comparison. DOSE: 8.2 mCi Tc 99m Myoview at rest 26.5 mCi [id number] at stress 0.4 mg Lexiscan STRESS SYMPTOMS: Short of breath. EJECTION FRACTION: 67 % TECHNIQUE: The patient underwent pharmacologic stress with infusion of prescribed dose. Continuous ECG tracing was monitored during stress. Gated SPECT imaging was performed after stress and conventi onal SPECT imaging was performed at rest. The examination was performed on a SPECT/CT scanner, both attenuation and non-corrected datasets were reviewed. FINDINGS: Distribution: The maximum perfused segment at stress is in the posterior basal wall. Perfusion Study: There is mildly diminished relative perfusion involving the cardiac apex with like ly small area of moderate reversibility involving the apical septal region . Gated Study: There are intact wall motion and wall thickening without hypokinetic or dyskinetic segm ents. The ejection fraction is calculated at 67%. RISK CATEGORY: Low (<1% Annual Motality Rate) CONCLUSION: Mildly diminished apical perfusion with small area of reversibility in the low septal region Electronically signed by: Tyree Muñoz MD 01/28/2018 11:16 AM EDT
[2018-01-28 11:45] VITALS: PULSE 85
--- NOTE | 2018-01-28 11:48 | HHI.DCPOC ---
Discharge Care Plan Diagnosis: (1) Chest pain Goals to Promote Your Health * To prevent worsening of your condition and complications * To maintain your health at the optimal level Directions to Meet Your Goals Take your medications as prescribed Follow your dietary instruction Follow activity as directed Keep your appointments as scheduled Take your immunizations and boosters as scheduled If your symptoms worsen call your PCP, if no PCP go to Urgent Care Center or Emergency Room Smoking is Dangerous to Your Health. Avoid second hand smoke Call the 24-hour hour crisis hotline for domestic abuse at Ida Hernandez Jan 28, 2018 11:48
[2018-01-28] MEDS: ASPIRIN 325 MG TAB PO SCH (11:51)
--- NOTE | 2018-01-28 11:52 | HHI.DS ---
Discharge Summary Admission Date Jan 27, 2018 at 10:14 Discharge Date: Jan 28, 2018 Admitting Diagnosis chest pain (1) Chest pain ICD Codes: R07.9 - Chest pain, unspecified Status: Acute (2) Type 2 diabetes mellitus ICD Codes: E11.9 - Type 2 diabetes mellitus without complications Brief History 52-year-old male history of type 2 diabetes and hyperlipidemia presents the emergency room for further evaluation of chest pain. Admitted chest pain center. ACS ruled out with 3 sets of EKGs and cardiac enzymes. Seen and evaluated by Dr. Jorge Selby. Proceed with exercise stress test. During stress testing developed downsloping and flat ST changes inferiorly and laterally at 77% predicted heart rate. Monitored overnight completed Lexiscan next morning. Discharge home with follow up with PCP. CBC/BMP: 01/27/18 0915 01/27/18 0915 Significant Findings Laboratory Tests Test 01/27/18 09:15 01/27/18 12:25 01/27/18 15:30 Blood Urea Nitrogen 26 MG/DL (7-18) Random Glucose 142 MG/DL (74-106) Estimat Glomerular Filtration Rate 69 ML/MIN (>89) Alkaline Phosphatase 124 U/L (45-117) Creatine Kinase MB 4.4 NG/ML (0.5-3.6) 4.0 NG/ML (0.5-3.6) Troponin I LESS THAN 0.02 NG/ML LESS THAN 0.02 NG/ML LESS THAN 0.02 NG/ML Imaging Last 48 hours Impressions Myocardial Perfusion Scan Nuc Med 01/28/18 0000 Signed Impressions: CONCLUSION: Mildly diminished apical perfusion with small area of reversibility in the low septal region Gall Bladder Ultrasound 01/28/18 0000 Signed Impressions: CONCLUSION: Abnormal gallbladder appearance. Chest X-Ray 01/27/18 0913 Signed Impressions: CONCLUSION: No acute cardiopulmonary disease Abdomen X-Ray 01/27/18 0000 Signed Impressions: CONCLUSION: No acute abnormalities PE at Discharge GENERAL: Alert WN, WD, NAD, pleasant, male HEAD: NC, AT CV: RRR, without murmur, rub, gallop, no JVD, S1-S2 no S3-S4. No carotid bruits RESP: Clear lungs throughout bilateral, no crackles, wheeze, rhonchi, symmetrical chest rise, nonlabored, able to speak in full sentences MS: Normal tone x4 extremities, no obvious deformities, full range of motion PSYCH: A+O x3, pleasant affect, appropriate speech, mood, insight and judgment SKIN: Normal turgor, normal texture Pt Condition on Discharge: Good Discharge Disposition: Discharge Home Discharge Instructions DIET: Follow Instructions for: Heart Healthy Diet Activities you can perform: Regular-No Restrictions Ida Hernandez Jan 28, 2018 11:52
[2018-01-28 12:00] VITALS: BP 116/76; PULSE 84; RESP 17; TEMP 97.9; O2SAT 97
--- NOTE | 2018-01-29 16:42 | EKG ---
Date Performed: 01/27/2018 Time Performed: 15:38:49 PTAGE: 52 years EKG: Sinus rhythm NORMAL ECG PREVIOUS TRACING : 01/27/2018 11.27 Since previous tracing, no significant change noted DOCTOR: Pollo Garcia Interpretating Date/Time 01/29/2018 16:42:04
--- NOTE | 2018-01-29 16:43 | EKG ---
Date Performed: 01/27/2018 Time Performed: 11:27:58 PTAGE: 52 years EKG: Sinus rhythm NORMAL ECG PREVIOUS TRACING : 01/27/2018 09.11 Since previous tracing, no significant change noted DOCTOR: Pollo Garcia Interpretating Date/Time 01/29/2018 16:42:31
--- NOTE | 2018-01-29 16:43 | EKG ---
Date Performed: 01/27/2018 Time Performed: 09:11:23 PTAGE: 52 years EKG: Sinus rhythm NORMAL ECG NO PREVIOUS TRACING DOCTOR: Pollo Garcia Interpretating Date/Time 01/29/2018 16:42:36
--- NOTE | 2018-01-29 16:48 | TR ---
Date Performed: 01/28/2018 Time Performed: 09:54:50 DOCTOR: Pollo Garcia DRUG LIST: CLINICAL HISTORY: REASON FOR TEST: REASON FOR ENDING: OBSERVATION: CONCLUSION: COMMENTS: Lexiscan stress test was performed under standard four minute protocol. Radionuclide was injected one minute prior to ending the test. No electrocardiographic abormalities were present t o suggest ischemia. Nuclear imaging and interpretation are pending.
== END 2018-01-28 12:32 | disposition home or self-care (01) ==
LOC: NEPE 08:57 → UNDOADMIN 10:14 → NEDA 10:14 → NEPGCP 12:43 → NEDA 12:43 → NEPE 01-28 12:32 → UNDODISIN 01-28 12:32
DX: R07.89 Other chest pain (principal); E11.9 Type 2 diabetes mellitus without complications; Z79.84 Long term (current) use of oral hypoglycemic drugs
CPT/HCPCS: 71045; 74019; 76705; 78452; 80048; 80076; 82550; 82552; 82948; 83690; 84484; 85025; 93005; 93017; 96361; 96374; 96375; 96376; 99285; A9502; J2270; J2785; J7030